=== PATIENT | male | born 1990 | race Two or more races ===

== ENCOUNTER 2019-10-10 14:04 | Emergency (ER) | payer SELFPAY ==
[~2019-10-10] VITALS: Ht 165.1 cm; Wt 81.6 kg
[2019-10-10 14:29] VITALS: BP 130/79
[2019-10-10] MEDS ORDERED: FLUORESCEIN SOD 1 MG TEST STRIP LEFTEYE ONE (14:30)
[2019-10-10] MEDS ORDERED: TETRACAINE HCL 0.5% OPTH(EYE) SOLN 4ML LEFTEYE ONE (14:30)
== END 2019-10-10 15:54 | disposition home or self-care (01) ==
LOC: ER 14:04
DX: T15.92XA Foreign body on external eye, part unspecified, left eye, initial encounter (principal); X58.XXXA Exposure to other specified factors, initial encounter; Y93.89 Activity, other specified; Y92.89 Other specified places as the place of occurrence of the external cause; Y99.8 Other external cause status
CPT/HCPCS: 65220